=== PATIENT | male | born 1975 | race Caucasian/White ===

== ENCOUNTER 2022-08-10 23:22 | Inpatient (IN) | payer OTHER ==
[~2022-08-10] VITALS: Ht 170.2 cm; Wt 70.3 kg
--- NOTE | 2022-08-10 23:35 | NUR ---
Dr. Ledezma at bedside. MSE in progress.
[2022-08-10] MEDS ORDERED: IV NORMAL SALINE 1000 ML BAG IV ONE (23:45)
[2022-08-10] MEDS ORDERED: CHLORDIAZEPOXIDE HCL 25 MG CAPSULE PO ONE (23:45)
[2022-08-10] MEDS ORDERED: THIAMINE HCL 100 MG TABLET PO ONE (23:45)
[2022-08-10] MEDS ORDERED: LORAZEPAM 2 MG/1 ML VIAL IV ONE (23:45)
[2022-08-10] MEDS ORDERED: LORAZEPAM 2 MG/1 ML VIAL ONE (23:49)
[2022-08-10] MEDS ORDERED: CHLORDIAZEPOXIDE HCL 25 MG CAPSULE ONE (23:49)
[2022-08-10] MEDS ORDERED: THIAMINE HCL 100 MG TABLET ONE (23:49)
[2022-08-10 23:51] LABS: HEMATOCRIT 32.5 % (36.7-47.1); MEAN CORPUSCULAR HEMOGLOBIN 26.3 uug (23.8-33.4); MEAN CORPUSCULAR VOLUME 82.4 fL (73.0-96.2); PLATELET COUNT (AUTO) 51 K/uL (152-348)
[2022-08-11 00:04] LABS: CARBON DIOXIDE 21 mmol/L (21-32); CHLORIDE 107 mmol/L (98-107); CREATININE 1.5 mg/dL (0.6-1.3); GLUCOSE 155 mg/dL (74-106); UREA NITROGEN, BLOOD 28 mg/dL (7-18)
[2022-08-11 00:08] LABS: ETHANOL < 3 MG/DL (0-0)
[2022-08-11 00:18] LABS: ALANINE AMINOTRANSFERASE 28 U/L (16-63); ALKALINE PHOSPHATASE 170 U/L (50-136); ASPARTATE AMINOTRANSFERASE 76 U/L (15-37); BILIRUBIN,DIRECT 0.9 mg/dL (0.0-0.2); BILIRUBIN,TOTAL 1.8 mg/dL (0.2-1.0); TOTAL PROTEIN, SERUM 8.1 g/dL (6.4-8.2)
[2022-08-11 00:34] LABS: MAGNESIUM 1.9 mg/dL (1.8-2.4)
[2022-08-11 00:41] LABS: IRON, SERUM 139 ug/dL (50-175)
[2022-08-11] MEDS ORDERED: LACTULOSE 20 G/30 ML LIQUID UDC PO ONE (00:45)
[2022-08-11] MEDS ORDERED: IV NS 1000 ML 1,000 ML IV ONE (00:45)
[2022-08-11] MEDS ORDERED: GABA-532 PO (01:13)
[2022-08-11] MEDS ORDERED: METF-440 PO (01:13)
[2022-08-11] MEDS ORDERED: CLON0.1T PO (01:13)
[2022-08-11] MEDS ORDERED: METH-807 PO (01:13)
[2022-08-11] MEDS ORDERED: LACT10SO3 PO (01:13)
[2022-08-11] MEDS ORDERED: PANT40TA49 PO (01:13)
[2022-08-11] MEDS ORDERED: RIFA550T PO (01:13)
[2022-08-11] MEDS ORDERED: INSU100I26 SQ (01:13)
[2022-08-11] MEDS ORDERED: AMLO10TA59 PO (01:13)
[2022-08-11] MEDS ORDERED: FOLI1TAB94 PO (01:13)
[2022-08-11] MEDS ORDERED: vitamin b1 PO (01:13)
[2022-08-11] MEDS ORDERED: LOSA1TAB39 PO (01:13)
[2022-08-11] MEDS ORDERED: LACTULOSE 20 G/30 ML LIQUID UDC ONE (01:57)
[2022-08-11] MEDS ORDERED: MAGNESIUM SULFATE/D5W 200 ML ONE (01:57)
[2022-08-11] MEDS: MAGNESIUM SULFATE/D5W 100 ML IV SCH ×2 (02:00→03:11)
--- NOTE | 2022-08-11 02:00 | NUR ---
Patient sleeping. NAD noted
--- NOTE | 2022-08-11 02:32 | NUR ---
Called [facility] for panel call, Marisa MCGRAW NP conductor pullman.
[2022-08-11] MEDS ORDERED: ONDANSETRON 4 MG/2 ML VIAL IV PRN (02:45)
[2022-08-11] MEDS ORDERED: REMEDY ESSENTIAL ZINC PASTE 113 GM TP PRN (02:45)
[2022-08-11] MEDS ORDERED: MAGNESIUM HYDROXIDE 30 ML LIQUID UDC PO PRN (02:45)
[2022-08-11] MEDS ORDERED: ACETAMINOPHEN 325 MG TABLET PO PRN (02:45)
--- NOTE | 2022-08-11 03:16 | NUR ---
Antonina cleaning performed. Pt urinated.
[2022-08-11 03:28] LABS: *BILIRUBIN,URIN NEGATIVE (NEGATIVE); *CLARITY,URINE CLEAR (CLEAR); *COLOR,URINE YELLOW (YELLOW); *KETONES,URINE NEGATIVE (NEGATIVE); *UROBILINOGEN,URINE 0.2 E.U./dl (NORMAL); LEUKOCYTE ESTERASE ,URINE NEGATIVE (NEGATIVE); NITRITE, URINE NEGATIVE (NEGATIVE); UGLUCOSE NEGATIVE (NEGATIVE)
[2022-08-11 03:30] LABS: *BLOOD, URINE NEGATIVE (NEGATIVE)
--- NOTE | 2022-08-11 03:33 | NUR ---
Covid swab sent to the lab.
[2022-08-11 03:36] LABS: *AMPHETAMINE, URINE NEGATIVE (NEGATIVE); *CANNABINOID, URINE NEGATIVE (NEGATIVE); *COCCAINE, URINE NEGATIVE (NEGATIVE); *PHENCYCLIDINE SCREEN,URINE NEGATIVE (NEGATIVE)
--- NOTE | 2022-08-11 04:50 | NUR ---
Report given to [facility].
[2022-08-11] MEDS: CLONIDINE HCL 0.1 MG TABLET PO SCH ×4 (06:00→21:14)
[2022-08-11 06:15] VITALS: BP 174/79
--- NOTE | 2022-08-11 06:15 | NUR ---
Pt. admitted to M/S RM 325, under care of Marisa Newsome NP. Belongs List completed [facility] aware of pt's arrival to unit.
[2022-08-11] MEDS: IV NS 1000 ML 1,000 ML IV PRN ×2 (06:31→17:29)
[2022-08-11] MEDS: PANTOPRAZOLE SODIUM 40 MG TABLET.DR PO SCH (06:36)
--- NOTE | 2022-08-11 06:40 | NUR ---
RECEIVED PATIENT VIA GURNEY FROM ER. PATIENT IS CONFUSED AND DISORIENTED. NEEDS FREQUENT REDIRECTION. BP ELEVATED UPON ADMISSION. ALL OTHER VSS. HEPLOCK INTACT AND PATENT, NOTED TO RIGHT AC WITH IVF INFUSING WELL. BED ALARM ON. WILL CONTINUE TO MONITOR AND ASSESS.
--- NOTE | 2022-08-11 07:30 | NUR ---
RECEIVED PATIENT IN BED ASLEEP OPENS EYES WHEN NAME IS CALLED ALERT AND AWARE WILL PROMPTLY FALL ASLEEP ON O2 WITH NO SOB ALL NEEDS ANTICIPATED AND SATISFIED NO TREMORS AT THIS TIME.REMAIN ON IVF ORDERED WITH NO S/S OF INFILTERATION CALL LIGHTS AND PERSONAL BELONGINGS ARE WITHIN EASY REACH MADE COMFORTABLE WILL CONTINUE TO OBSERVE.
[2022-08-11] MEDS ORDERED: CLONIDINE HCL 0.1 MG TABLET PO PRN (08:00)
[2022-08-11] MEDS ORDERED: LORAZEPAM 1 MG TABLET PO PRN (08:00)
[2022-08-11] MEDS ORDERED: Medication Not On Formulary EA (Losartan/Hydrochlorothiazide (Losartan-Hctz 100-25 Mg Ta PO SCH (09:00)
[2022-08-11] MEDS ORDERED: PANTOPRAZOLE SODIUM 40 MG VIAL IV SCH (09:00)
[2022-08-11] MEDS: RIFAXIMIN 550 MG TABLET PO SCH ×2 (09:59→16:33)
[2022-08-11] MEDS: GABAPENTIN 300 MG CAPSULE PO SCH ×3 (09:59→16:25)
[2022-08-11] MEDS: AMLODIPINE 10 MG TABLET PO SCH (10:00)
[2022-08-11] MEDS: HYDROCHLOROTHIAZIDE 25 MG TABLET PO SCH (10:01)
[2022-08-11] MEDS: LOSARTAN POTASSIUM 50 MG TABLET PO SCH (10:01)
[2022-08-11] MEDS: LACTULOSE 20 G/30 ML LIQUID UDC PO SCH ×4 (10:02→20:41)
[2022-08-11] MEDS: FOLIC ACID 1 MG TABLET PO SCH (10:05)
[2022-08-11 11:48] VITALS: BP 145/74
[2022-08-11] MEDS ORDERED: DEXTROSE 50% 50 ML DISP.SYRIN IV PRN (14:30)
[2022-08-11] MEDS ORDERED: INSULIN REGULAR, HUMAN 300 UNITS/3 ML VIAL SQ PRN (14:30)
[2022-08-11 15:58] VITALS: BP 163/77
[2022-08-11] MEDS: SILVER SULFADIAZINE 1% CREAM 50 GM TP SCH ×2 (16:26→20:38)
[2022-08-11] MEDS: BLOOD SUGAR DIAGNOSTIC 1 EACH STRIP VI SCH ×2 (16:26→20:53)
[2022-08-11] MEDS: INSULIN REGULAR, HUMAN 300 UNIT/3 ML VIAL SQ PRN (16:27)
[2022-08-11] MEDS ORDERED: HALOPERIDOL LACTATE 5 MG/1 ML VIAL IM PRN (20:15)
[2022-08-11] MEDS: LORAZEPAM 2 MG/1 ML VIAL IV PRN (20:33)
[2022-08-11 20:37] VITALS: BP 154/75
--- NOTE | 2022-08-11 23:59 | NUR ---
Received patient alert and oriented x1 Confused and [id number]. Patient keeps getting out of bed, patient redirected but unable to do so. Patient get agitated and wants to leave AMA.Dr Lancaster called and made aware, ordered bilateral soft wrist restraints, Ativan 2mg IV and Haldol 5mg x1 dose given. Patient finally calm down and slept. Right foot dressing changed as ordered, no drainage noted. Fall precautions maintained. Will monitor patient. VSS.
[2022-08-12] MEDS: IV NS 1000 ML 1,000 ML IV PRN ×2 (03:55→19:06)
[2022-08-12 04:20] VITALS: BP 162/79
[2022-08-12] MEDS: CLONIDINE HCL 0.1 MG TABLET PO SCH ×3 (05:24→21:29)
[2022-08-12] MEDS: PANTOPRAZOLE SODIUM 40 MG TABLET.DR PO SCH (06:10)
[2022-08-12] MEDS: BLOOD SUGAR DIAGNOSTIC 1 EACH STRIP VI SCH ×4 (06:32→21:26)
[2022-08-12 06:40] LABS: HEMATOCRIT 30.8 % (36.7-47.1); MEAN CORPUSCULAR HEMOGLOBIN 26.8 uug (23.8-33.4); MEAN CORPUSCULAR VOLUME 80.9 fL (73.0-96.2); PLATELET COUNT (AUTO) 53 K/uL (152-348)
[2022-08-12 06:56] LABS: BILIRUBIN,TOTAL 2.2 mg/dL (0.2-1.0); CREATININE 0.8 mg/dL (0.6-1.3); MAGNESIUM 1.4 mg/dL (1.8-2.4); PHOSPHOROUS 4.1 mg/dL (2.5-4.9); POTASSIUM 3.7 mmol/L (3.5-5.1); TOTAL PROTEIN, SERUM 7.3 g/dL (6.4-8.2)
[2022-08-12] MEDS: INSULIN REGULAR, HUMAN 300 UNIT/3 ML VIAL SQ PRN ×3 (08:20→21:35)
[2022-08-12] MEDS: FOLIC ACID 1 MG TABLET PO SCH (08:21)
[2022-08-12] MEDS: GABAPENTIN 300 MG CAPSULE PO SCH ×3 (08:21→17:04)
[2022-08-12] MEDS: LOSARTAN POTASSIUM 50 MG TABLET PO SCH (08:41)
[2022-08-12] MEDS: LACTULOSE 20 G/30 ML LIQUID UDC PO SCH ×4 (08:42→21:25)
[2022-08-12] MEDS: AMLODIPINE 10 MG TABLET PO SCH (08:42)
[2022-08-12] MEDS: HYDROCHLOROTHIAZIDE 25 MG TABLET PO SCH (08:42)
[2022-08-12] MEDS: RIFAXIMIN 550 MG TABLET PO SCH ×2 (08:43→17:06)
--- NOTE | 2022-08-12 09:50 | NUR ---
MAGNESIUM LEVEL IS 1.4 WITH NEW ORDERS AND NOTED
[2022-08-12] MEDS: SILVER SULFADIAZINE 1% CREAM 50 GM TP SCH ×2 (09:53→21:26)
[2022-08-12] MEDS: MAGNESIUM SULFATE/D5W 100 ML IV SCH ×4 (09:58→13:48)
[2022-08-12 11:36] VITALS: BP 167/73
--- NOTE | 2022-08-12 13:15 | NUR ---
PATIENT IS SLEEPING BUT AROUSES TO HIS NAME AND RESPONDS TO YES OR NO QUESTIONS WHEN ASKED BUT WILL PROMPTLY FALL BACK ASLEEP.DUE MEDICATIONS GIVEN WITH APPLE SAUCE AND HE WAS ABLE TO SWALLOW WITH NO ASPIRATION ALSO WAS ABLE TO EAT BITES OF HIS FOOD SPOON FED FALLS ASLEEP EASILY AND WHEN REMINDED TO STAY AWAKE HIS RESPONSE IS < I AM TRYING > WILL CONTINUE TO OBSERVE AND PROVIDE SAFE AND THERAPEUTIC ENVIRONMENT AT ALL TIMES.
--- NOTE | 2022-08-12 13:27 | NUR ---
WOUND CARE CONSULT: PT EXTREMELY DROWSY. ADMISSION PHOTO SHOWS FOOT ULCER. DPM CONSULT RECOMMENDED. MD IN AGREEMENT WITH PLAN OF CARE.
[2022-08-12 15:09] LABS: BAND % (MANUAL) 2 % (0-10); NEUTROPHILS % (MANUAL) 66 % (42-75)
[2022-08-12 15:10] LABS: EOSINOPHILS % (MANUAL) 2 % (0-8); LYMPHOCYTES % (MANUAL) 20 % (20-40); MONOCYTES % (MANUAL) 10 % (2-10)
[2022-08-12 15:55] VITALS: BP 135/76
[2022-08-12 20:00] VITALS: BP 118/62
[2022-08-13] MEDS: IV NS 1000 ML 1,000 ML IV PRN ×2 (02:18→11:15)
--- NOTE | 2022-08-13 05:12 | NUR ---
Patient Slept this shift . No acute distress noted. Bilateral soft wrist restraints on for patients safety. Right foot dressing changed as ordered. Normal saline infusing at 125cc per hour into right forearm. Will continue to monitor.
[2022-08-13] MEDS: BLOOD SUGAR DIAGNOSTIC 1 EACH STRIP VI SCH ×3 (06:07→16:58)
[2022-08-13] MEDS: CLONIDINE HCL 0.1 MG TABLET PO SCH ×2 (06:11→13:13)
[2022-08-13] MEDS: PANTOPRAZOLE SODIUM 40 MG TABLET.DR PO SCH (06:11)
[2022-08-13 07:10] LABS: CREATININE 0.7 mg/dL (0.6-1.3); MAGNESIUM 1.5 mg/dL (1.8-2.4); POTASSIUM 3.9 mmol/L (3.5-5.1)
[2022-08-13] MEDS: INSULIN REGULAR, HUMAN 300 UNIT/3 ML VIAL SQ PRN ×2 (08:34→12:35)
[2022-08-13] MEDS: LACTULOSE 20 G/30 ML LIQUID UDC PO SCH ×3 (08:44→16:46)
[2022-08-13] MEDS: FOLIC ACID 1 MG TABLET PO SCH (08:44)
[2022-08-13] MEDS: GABAPENTIN 300 MG CAPSULE PO SCH ×3 (08:44→16:46)
[2022-08-13] MEDS: HYDROCHLOROTHIAZIDE 25 MG TABLET PO SCH (08:45)
[2022-08-13] MEDS: AMLODIPINE 10 MG TABLET PO SCH (08:45)
[2022-08-13] MEDS: LOSARTAN POTASSIUM 50 MG TABLET PO SCH (08:46)
[2022-08-13] MEDS: SILVER SULFADIAZINE 1% CREAM 50 GM TP SCH (08:47)
[2022-08-13] MEDS: RIFAXIMIN 550 MG TABLET PO SCH ×2 (08:47→16:47)
[2022-08-13] MEDS: LORAZEPAM 2 MG/1 ML VIAL IV PRN (09:14)
--- NOTE | 2022-08-13 09:14 | NUR ---
PATIENT IS CONFUSED GETTING VERY AGITATED WANTS TO LEAVE DOES NOT KNOW WHERE HE IS GOING WRIST RESTRAINTS ARE IN USE MEDICATED WITH ATIVAN ORDERED FOR SAFETY MADE COMFORTABLE WILL OBSERVE.
[2022-08-13] MEDS: MAGNESIUM SULFATE/D5W 100 ML IV SCH ×2 (10:28→11:08)
--- NOTE | 2022-08-13 11:00 | NUR ---
PATIENT SLEPT FOR A PEROID OF TIME AND WHEN HE WOKE UP HAS BEEN VERY COOPERATIVE AND MORE ALERT WRIST RESTRAINTS NOT IN USE AT THIS TIME PLACED ON HOLD AND WILL CONTINUE TO REASSESS NEED AT THIS TIME.
[2022-08-13 11:49] VITALS: BP 107/75
--- NOTE | 2022-08-13 16:00 | NUR ---
PER THE [employer] PATIENT WILL BE PICKED UP AT 1830 BY [facility] PATIENT AWARE AND EAGER TO GO BACK
[2022-08-13 16:44] VITALS: BP 120/57
--- NOTE | 2022-08-13 17:57 | NUR ---
MAGNESSIUM LEVEL TODAT WAS 1.5 REPLACED WITH 2 GRAMS OF MAGNESSIUM AND TOLERATED WELL .
--- NOTE | 2022-08-13 18:45 | NUR ---
PATIENT DISCHARGED PICKED UP BY [facility] EMPLOYEE MIGUEL ANGEL IN SATISFACTORY CONDITION DISCHARGE INSTRUCTIONS GIVEN BUT PATIENT REFUSED TO SIGN THE PAPERS STATED HAS RIGHT TO REFUSE TO SIGN.PATIENT TAKEN DOWN BY W/CHAIR ACCOMPANIED BY MIGUEL ANGEL.
[2022-08-14] MEDS ORDERED: CADEXOMER IODINE 40 GM TUBE TOP SCH (09:00)
== END 2022-08-13 18:45 | disposition home or self-care (01) | DRG 441 ==
LOC: ER 23:30 → MEDSURG3 08-11 02:40
PROVIDERS: ADMIT Internal Medicine; ATTEND Internal Medicine
DX: K76.82 Hepatic encephalopathy (principal); N17.0 Acute kidney failure with tubular necrosis; D61.818 Other pancytopenia; E87.20 Acidosis, unspecified; F10.139 Alcohol abuse with withdrawal, unspecified; D63.8 Anemia in other chronic diseases classified elsewhere; E11.42 Type 2 diabetes mellitus with diabetic polyneuropathy; E11.621 Type 2 diabetes mellitus with foot ulcer; I10 Essential (primary) hypertension; M21.6X9 Other acquired deformities of unspecified foot; L97.519 Non-pressure chronic ulcer of other part of right foot with unspecified severity; F19.11 Other psychoactive substance abuse, in remission; Z79.84 Long term (current) use of oral hypoglycemic drugs; Z79.4 Long term (current) use of insulin; S30.1XXA Contusion of abdominal wall, initial encounter; X58.XXXA Exposure to other specified factors, initial encounter; Y93.9 Activity, unspecified; Y92.89 Other specified places as the place of occurrence of the external cause; Y90.0 Blood alcohol level of less than 20 mg/100 ml; K70.9 Alcoholic liver disease, unspecified
CPT/HCPCS: 36415; 70030-TC; 70450; 71045; 83550; 83605; 83735; 84100; 84484; 85025; 85730; 93005; A4663; C1758; G0378; G0480; J1630; J1815; J2060; J3475; J7040

== ENCOUNTER 2022-08-23 17:05 | Emergency (ER) | payer OTHER ==
[~2022-08-23] VITALS: Ht 175.3 cm; Wt 80.7 kg
[~2022-08-23 17:05] MED LIST: AMLO10TA59 PO; CLON0.1T PO; FOLI1TAB94 PO; GABA-532 PO; INSU100I26 SQ; LACT10SO3 PO; LOSA1TAB39 PO; METF-440 PO; METH-807 PO; PANT40TA49 PO; RIFA550T PO; vitamin b1 PO
--- NOTE | 2022-08-23 17:22 | NUR ---
Pt unable to provide HX.
[2022-08-23] MEDS ORDERED: IV NORMAL SALINE 1000 ML BAG IV ONE ×2 (17:30→18:45)
[2022-08-23 17:43] LABS: HEMATOCRIT 29.8 % (36.7-47.1); MEAN CORPUSCULAR HEMOGLOBIN 27.2 uug (23.8-33.4); MEAN CORPUSCULAR VOLUME 82.3 fL (73.0-96.2); PLATELET COUNT (AUTO) 74 K/uL (152-348)
[2022-08-23 17:57] LABS: BILIRUBIN,DIRECT 0.7 mg/dL (0.0-0.2); BILIRUBIN,TOTAL 1.7 mg/dL (0.2-1.0); CREATININE 1.2 mg/dL (0.6-1.3); POTASSIUM 3.9 mmol/L (3.5-5.1); TOTAL PROTEIN, SERUM 7.6 g/dL (6.4-8.2)
[2022-08-23] MEDS ORDERED: SSD TP (18:45)
[2022-08-23] MEDS ORDERED: QUET50TA PO (18:45)
[2022-08-23] MEDS ORDERED: ONDA4TAB5 PO (18:45)
[2022-08-23] MEDS ORDERED: BLOO-668 IN (18:45)
[2022-08-23] MEDS ORDERED: LACTULOSE 20 G/30 ML LIQUID UDC PO ONE (18:45)
--- NOTE | 2022-08-23 19:12 | NUR ---
Extra warm blankets on, pending urine and COVID specimens. Comfort and safety measures maintained, pending results and disposition.
--- NOTE | 2022-08-23 19:14 | NUR ---
DEBO from Kaye VASQUEZ
[2022-08-23] MEDS ORDERED: LACTULOSE 20 G/30 ML LIQUID UDC ONE (19:44)
--- NOTE | 2022-08-23 20:23 | NUR ---
called [facility] for panel call. Junior Reilly SCIENTIFIC PHOTOGRAPHER - Hospitalist environmental services associate
--- NOTE | 2022-08-23 21:00 | NUR ---
Patient has been accepted by [facility]
--- NOTE | 2022-08-23 21:06 | NUR ---
Per Jay VASQUEZunit aide tech, no beds available at the moment. Patient will stay in ER until a bed is available
[2022-08-23] MEDS ORDERED: ACETAMINOPHEN 325 MG TABLET PO PRN (22:00)
[2022-08-23] MEDS ORDERED: REMEDY ESSENTIAL ZINC PASTE 113 GM TP PRN (22:00)
[2022-08-23] MEDS ORDERED: MAGNESIUM HYDROXIDE 30 ML LIQUID UDC PO PRN (22:00)
[2022-08-23] MEDS ORDERED: ONDANSETRON 4 MG/2 ML VIAL IV PRN (22:00)
--- NOTE | 2022-08-24 00:02 | NUR ---
Patient does not wish to proceed with medical care recommended by Dr. Ledezma. Patient given information related to possible complications, up to and including , which could occur as a result of leaving the hospital at this time. Patient verbalizes understanding of risks involved due to leaving against medical advice. Patient has signed AMA form.
[2022-08-24 00:03] VITALS: BP 122/67
[2022-08-24] MEDS ORDERED: PANTOPRAZOLE SODIUM 40 MG VIAL IV SCH (09:00)
[2022-08-24] MEDS ORDERED: THIAMINE HCL 100 MG TABLET PO SCH (09:00)
[2022-08-24] MEDS ORDERED: RIFAXIMIN 200 MG TABLET PO SCH (09:00)
[2022-08-24] MEDS ORDERED: LACTULOSE 20 G/30 ML LIQUID UDC PO SCH (09:00)
[2022-08-24] MEDS ORDERED: FOLIC ACID 1 MG TABLET PO SCH (09:00)
[2022-08-24] MEDS ORDERED: THIA100T74 PO (13:19)
== END 2022-08-23 23:45 | disposition left against medical advice (07) ==
LOC: ER 17:07
DX: K76.82 Hepatic encephalopathy (principal); F10.20 Alcohol dependence, uncomplicated; E87.20 Acidosis, unspecified; E11.65 Type 2 diabetes mellitus with hyperglycemia; Z79.4 Long term (current) use of insulin; Z79.84 Long term (current) use of oral hypoglycemic drugs; Z79.899 Other long term (current) drug therapy; Z20.822 Contact with and (suspected) exposure to COVID-19; Z53.21 Procedure and treatment not carried out due to patient leaving prior to being seen by health care provider
CPT/HCPCS: 99285; 96360; 96361; 87426; 80076; 80048; 82009; 82140; 82962; 85025; 36415; 83605 ×2; J7040 ×2; A4663

== ENCOUNTER 2022-08-24 01:18 | Inpatient (IN) | payer OTHER ==
[~2022-08-24] VITALS: Ht 170.2 cm; Wt 63.5 kg
[~2022-08-24 01:18] MED LIST changes: +BLOO-668 IN; +ONDA4TAB5 PO; +QUET50TA PO; +SSD TP
[2022-08-24] MEDS ORDERED: LACTULOSE 20 G/30 ML LIQUID UDC PO ONE (01:45)
[2022-08-24] MEDS ORDERED: LACTULOSE 20 G/30 ML LIQUID UDC ONE (01:48)
[2022-08-24] MEDS ORDERED: CLONIDINE HCL 0.2 MG TABLET ONE (01:56)
[2022-08-24] MEDS ORDERED: CLONIDINE HCL 0.2 MG TABLET PO ONE (02:00)
[2022-08-24 02:11] LABS: ACETAMINOPHEN < 2.0 ug/mL (10-30)
[2022-08-24 02:21] LABS: *BILIRUBIN,URIN NEGATIVE (NEGATIVE); *BLOOD, URINE 2+ (NEGATIVE); *CLARITY,URINE CLEAR (CLEAR); *COLOR,URINE YELLOW (YELLOW); *KETONES,URINE NEGATIVE (NEGATIVE); LEUKOCYTE ESTERASE ,URINE NEGATIVE (NEGATIVE); NITRITE, URINE NEGATIVE (NEGATIVE); UGLUCOSE TRACE (NEGATIVE)
[2022-08-24 02:23] LABS: BACTERIA,URINE FEW /HPF (NONE SEEN); SQUAMOUS EPITHELIAL CELL,UR NONE SEEN /HPF (NONE SEEN); WBC,URINE NONE SEEN /HPF (0-3)
[2022-08-24 02:32] LABS: *AMPHETAMINE, URINE NEGATIVE (NEGATIVE); *CANNABINOID, URINE NEGATIVE (NEGATIVE); *COCCAINE, URINE NEGATIVE (NEGATIVE); *PHENCYCLIDINE SCREEN,URINE NEGATIVE (NEGATIVE)
[2022-08-24] MEDS ORDERED: LORAZEPAM 1 MG TABLET ONE (05:28)
[2022-08-24] MEDS ORDERED: LORAZEPAM 0.5 MG TABLET PO ONE (05:30)
[2022-08-24] MEDS ORDERED: MAGNESIUM HYDROXIDE 30 ML LIQUID UDC PO PRN (06:30)
[2022-08-24] MEDS ORDERED: ONDANSETRON 4 MG/2 ML VIAL IV PRN (06:30)
[2022-08-24 09:11] VITALS: BP 136/61
[2022-08-24] MEDS: RIFAXIMIN 550 MG TABLET PO SCH ×2 (10:08→20:06)
[2022-08-24] MEDS: THIAMINE HCL 100 MG TABLET PO SCH (10:08)
[2022-08-24] MEDS: FOLIC ACID 1 MG TABLET PO SCH (10:08)
[2022-08-24] MEDS: AMLODIPINE 5 MG TABLET PO SCH (10:09)
[2022-08-24] MEDS: IV NS 1000 ML 1,000 ML IV PRN (10:09)
[2022-08-24] MEDS ORDERED: THIA100T74 PO (13:19)
[2022-08-24] MEDS: LACTULOSE 20 G/30 ML LIQUID UDC PO SCH ×2 (14:07→18:09)
[2022-08-24 16:00] VITALS: BP 108/51
[2022-08-24] MEDS: LORAZEPAM 2 MG/1 ML VIAL IV PRN ×2 (16:09→22:10)
[2022-08-24 19:53] LABS: HEMATOCRIT 26.7 % (36.7-47.1); MEAN CORPUSCULAR HEMOGLOBIN 26.9 uug (23.8-33.4); PLATELET COUNT (AUTO) 53 K/uL (152-348)
[2022-08-24 20:00] VITALS: BP 152/73
[2022-08-24 20:07] LABS: CREATININE 0.9 mg/dL (0.6-1.3); POTASSIUM 4.2 mmol/L (3.5-5.1)
[2022-08-24 20:13] LABS: BILIRUBIN,TOTAL 1.5 mg/dL (0.2-1.0); MAGNESIUM 1.7 mg/dL (1.8-2.4); PHOSPHOROUS 2.9 mg/dL (2.5-4.9); TOTAL PROTEIN, SERUM 6.8 g/dL (6.4-8.2)
[2022-08-24] MEDS ORDERED: DEXTROSE 50% 50 ML DISP.SYRIN IV PRN (20:15)
[2022-08-24] MEDS ORDERED: NALOXONE HCL 0.4 MG/ML AMPUL IV PRN (20:45)
[2022-08-24] MEDS ORDERED: OXYCODONE HCL 10 MG TAB.SR.12H PO PRN (20:45)
[2022-08-24] MEDS: BLOOD SUGAR DIAGNOSTIC 1 EACH STRIP VI SCH (21:08)
[2022-08-24] MEDS: OXYCODONE HCL 5 MG TABLET PO PRN (21:19)
[2022-08-24] MEDS: INSULIN REGULAR, HUMAN 300 UNIT/3 ML VIAL SQ PRN (21:41)
[2022-08-25] MEDS: LACTULOSE 20 G/30 ML LIQUID UDC PO SCH ×4 (01:24→18:37)
[2022-08-25 04:00] VITALS: BP 144/71
[2022-08-25] MEDS: BLOOD SUGAR DIAGNOSTIC 1 EACH STRIP VI SCH ×4 (06:59→21:06)
[2022-08-25 07:14] LABS: HEMATOCRIT 23.8 % (36.7-47.1); MEAN CORPUSCULAR HEMOGLOBIN 27.5 uug (23.8-33.4); MEAN CORPUSCULAR VOLUME 82.5 fL (73.0-96.2)
[2022-08-25 07:29] LABS: CREATININE 0.7 mg/dL (0.6-1.3); MAGNESIUM 1.5 mg/dL (1.8-2.4); PHOSPHOROUS 3.4 mg/dL (2.5-4.9); POTASSIUM 3.7 mmol/L (3.5-5.1)
[2022-08-25] MEDS ORDERED: MAGNESIUM OXIDE 400 MG TABLET PO ONE (07:45)
[2022-08-25 07:53] LABS: PLATELET COUNT (AUTO) 50 K/uL (152-348)
[2022-08-25] MEDS: FOLIC ACID 1 MG TABLET PO SCH (09:02)
[2022-08-25] MEDS: THIAMINE HCL 100 MG TABLET PO SCH (09:02)
[2022-08-25] MEDS: AMLODIPINE 5 MG TABLET PO SCH (09:03)
[2022-08-25] MEDS: OXYCODONE HCL 5 MG TABLET PO PRN ×2 (09:05→18:36)
[2022-08-25] MEDS: RIFAXIMIN 550 MG TABLET PO SCH ×2 (09:07→20:59)
[2022-08-25 11:50] VITALS: BP 149/71
[2022-08-25] MEDS: INSULIN REGULAR, HUMAN 300 UNIT/3 ML VIAL SQ PRN ×2 (12:26→21:05)
[2022-08-25] MEDS: LORAZEPAM 2 MG/1 ML VIAL IV PRN ×2 (12:30→21:49)
[2022-08-25 16:00] VITALS: BP 128/65
[2022-08-25] MEDS ORDERED: CLONIDINE HCL 0.1 MG TABLET PO PRN (17:15)
[2022-08-25 20:00] VITALS: BP 158/81
[2022-08-25] MEDS: QUETIAPINE FUMARATE 25 MG TABLET PO SCH (20:59)
[2022-08-26] MEDS: LACTULOSE 20 G/30 ML LIQUID UDC PO SCH ×4 (00:43→17:16)
[2022-08-26 04:00] VITALS: BP 136/70
[2022-08-26] MEDS: BLOOD SUGAR DIAGNOSTIC 1 EACH STRIP VI SCH ×4 (06:34→21:06)
[2022-08-26 07:14] LABS: CREATININE 0.7 mg/dL (0.6-1.3); POTASSIUM 3.8 mmol/L (3.5-5.1)
[2022-08-26 07:55] LABS: MEAN CORPUSCULAR VOLUME 83.1 fL (73.0-96.2)
[2022-08-26 07:56] LABS: HEMATOCRIT 23.3 % (36.7-47.1); MEAN CORPUSCULAR HEMOGLOBIN 27.5 uug (23.8-33.4)
[2022-08-26 08:22] LABS: PLATELET COUNT (AUTO) 46 K/uL (152-348)
[2022-08-26] MEDS ORDERED: THIAMINE HCL 100 MG TABLET PO SCH (09:00)
[2022-08-26] MEDS ORDERED: FOLIC ACID 1 MG TABLET PO SCH (09:00)
[2022-08-26] MEDS: FOLIC ACID 1 MG TABLET PO SCH (09:46)
[2022-08-26] MEDS: RIFAXIMIN 550 MG TABLET PO SCH ×2 (09:47→20:10)
[2022-08-26] MEDS: AMLODIPINE 5 MG TABLET PO SCH (09:47)
[2022-08-26] MEDS: THIAMINE HCL 100 MG TABLET PO SCH (09:54)
[2022-08-26] MEDS: CADEXOMER IODINE 40 GM TUBE TOP SCH (09:54)
[2022-08-26 10:38] LABS: EOSINOPHILS % (MANUAL) 3 % (0-8); LYMPHOCYTES % (MANUAL) 35 % (20-40); MONOCYTES % (MANUAL) 12 % (2-10); NEUTROPHILS % (MANUAL) 50 % (42-75)
[2022-08-26] MEDS ORDERED: IOHEXOL 300MG/ML 100 ML INFUS..BTL ONE (11:26)
[2022-08-26] MEDS ORDERED: SWABABLE VALVE TRANSFER SET EA MC ONE (11:26)
[2022-08-26] MEDS ORDERED: IV NORMAL SALINE 250 ML IV ONE (11:27)
[2022-08-26 11:38] VITALS: BP 136/69
[2022-08-26] MEDS: OXYCODONE HCL 5 MG TABLET PO PRN ×2 (12:38→20:51)
[2022-08-26 13:07] LABS: IRON, SERUM 86 ug/dL (50-175)
[2022-08-26 13:34] LABS: FERRITIN 134 ng/mL (26-388)
[2022-08-26] MEDS: IV NS 1000 ML 1,000 ML IV PRN (15:14)
[2022-08-26 15:25] LABS: *RHEUMATOID FACTOR SCREEN NEGATIVE (NEGATIVE)
[2022-08-26 16:00] VITALS: BP 130/76
[2022-08-26] MEDS: INSULIN REGULAR, HUMAN 300 UNIT/3 ML VIAL SQ PRN ×2 (17:19→21:17)
[2022-08-26 20:00] VITALS: BP 155/77
[2022-08-26] MEDS: QUETIAPINE FUMARATE 25 MG TABLET PO SCH (20:10)
[2022-08-27] VITALS: BP 132/61
[2022-08-27] MEDS: LACTULOSE 20 G/30 ML LIQUID UDC PO SCH ×3 (00:45→12:13)
[2022-08-27] MEDS: IV NS 1000 ML 1,000 ML IV PRN (05:22)
[2022-08-27] MEDS: OXYCODONE HCL 5 MG TABLET PO PRN (05:41)
[2022-08-27 06:38] LABS: HEMATOCRIT 24.2 % (36.7-47.1); MEAN CORPUSCULAR HEMOGLOBIN 27.6 uug (23.8-33.4); MEAN CORPUSCULAR VOLUME 83.7 fL (73.0-96.2)
[2022-08-27 06:49] LABS: CREATININE 0.7 mg/dL (0.6-1.3); POTASSIUM 4.1 mmol/L (3.5-5.1)
[2022-08-27] MEDS: BLOOD SUGAR DIAGNOSTIC 1 EACH STRIP VI SCH ×2 (07:03→12:04)
[2022-08-27 07:06] LABS: *IMMUNOGLOBULIN G, SERUM 1718 mg/dL (603-1613); IMMUNOGLOBULIN M, SERUM 178 mg/dL (20-172)
[2022-08-27 07:10] LABS: PLATELET COUNT (AUTO) 48 K/uL (152-348)
[2022-08-27 08:00] VITALS: BP 135/56
[2022-08-27] MEDS: INSULIN REGULAR, HUMAN 300 UNIT/3 ML VIAL SQ PRN ×2 (08:18→12:01)
[2022-08-27] MEDS ORDERED: RIFA550T PO ×2 (08:45→12:42)
[2022-08-27] MEDS: THIAMINE HCL 100 MG TABLET PO SCH (08:58)
[2022-08-27] MEDS: RIFAXIMIN 550 MG TABLET PO SCH (08:58)
[2022-08-27] MEDS: FOLIC ACID 1 MG TABLET PO SCH (08:58)
[2022-08-27] MEDS: CADEXOMER IODINE 40 GM TUBE TOP SCH (08:59)
[2022-08-27] MEDS: AMLODIPINE 5 MG TABLET PO SCH (08:59)
[2022-08-27 10:06] LABS: *ANTI-SCLERODERMA-70 AB <0.2 AI (0.0-0.9); *SJOGREN'S ANTI-SS-A <0.2 AI (0.0-0.9); *SJOGREN'S ANTI-SS-B <0.2 AI (0.0-0.9); *SMITH ANTIBODIES <0.2 AI (0.0-0.9); AFP, TUMOR MARKER 3.2 ng/mL (0.0-6.9); ANTI-DNA(DS) AB, QN <1 IU/mL (0-9); CARBOHYDRATE ANTIGEN, 19-9 43 U/mL (0-35)
[2022-08-27 11:24] VITALS: BP 123/69
[2022-08-27 13:06] LABS: A/G RATIO 0.8 (0.7-1.7); ALPHA-1-GLOBULIN 0.2 g/dL (0.0-0.4); ALPHA-2-GLOBULIN 0.5 g/dL (0.4-1.0); GLOBULIN, TOTAL 3.7 g/dL (2.2-3.9); HEPATITIS B SURFACE AG Negative (Negative); M-SPIKE Not Observed g/dL (Not Observed)
[2022-08-27 15:08] LABS: EOSINOPHILS % (MANUAL) 2 % (0-8); LYMPHOCYTES % (MANUAL) 37 % (20-40); MONOCYTES % (MANUAL) 6 % (2-10); NEUTROPHILS % (MANUAL) 55 % (42-75)
== END 2022-08-27 14:35 | disposition other institution (70) | DRG 442 ==
LOC: ER 01:24 → MEDSURG3 08:30
PROVIDERS: ADMIT Nurse Practitioner Acute Care; ATTEND Internal Medicine
PROC: 05HF33Z Insertion of Infusion Device into Left Cephalic Vein, Percutaneous Approach (ICD-10-PCS; principal; 2022-08-26)
DX: K76.82 Hepatic encephalopathy (principal); D61.818 Other pancytopenia; E87.20 Acidosis, unspecified; K70.30 Alcoholic cirrhosis of liver without ascites; E11.65 Type 2 diabetes mellitus with hyperglycemia; F10.20 Alcohol dependence, uncomplicated; Z79.84 Long term (current) use of oral hypoglycemic drugs; E11.621 Type 2 diabetes mellitus with foot ulcer; L97.511 Non-pressure chronic ulcer of other part of right foot limited to breakdown of skin; Q66.70 Congenital pes cavus, unspecified foot; F19.10 Other psychoactive substance abuse, uncomplicated; Z79.899 Other long term (current) drug therapy; I10 Essential (primary) hypertension; E83.42 Hypomagnesemia; E11.42 Type 2 diabetes mellitus with diabetic polyneuropathy; R31.29 Other microscopic hematuria; Z88.1 Allergy status to other antibiotic agents
CPT/HCPCS: 36415; 70030-TC; 74170; 76705; 82105; 82378; 82784; 83550; 83735; 84100; 84155; 84165; 85025; 85610; 85730; 86038; 86140; 86301; 86334; 86430; 86706; 86803; 87340; A4663; A6209; G0378; J1815; J2060; J7040; Q9967